=== PATIENT | female | born 1960 | race Two or more races ===

== ENCOUNTER 2019-01-03 12:24 | Emergency (ER) | payer OTHER ==
[~2019-01-03] VITALS: Ht 157.5 cm; Wt 817.4 kg
== END 2019-01-03 15:22 | disposition home or self-care (01) ==
LOC: ER 12:24
DX: M94.0 Chondrocostal junction syndrome [Tietze] (principal)

== ENCOUNTER 2022-02-11 07:45 | Outpatient (CLI) | payer OTHER | END 2022-02-11 07:46 | disposition home or self-care (01) | LOC: SONOGRAMA 07:45 | PROVIDERS: ATTEND Internal Medicine Gastroenterology | DX: R10.84 Generalized abdominal pain (principal) ==

== ENCOUNTER 2025-10-04 15:37 | Outpatient (CLI) | payer OTHER | END 2025-10-04 15:43 | disposition home or self-care (01) | LOC: SONOGRAMA 15:37 | PROVIDERS: ATTEND Pathology Anatomic Pathology & Clinical Pathology | DX: D34 Benign neoplasm of thyroid gland (principal); E07.89 Other specified disorders of thyroid; E04.1 Nontoxic single thyroid nodule ==